=== PATIENT | female | born 2000 | race Caucasian/White ===

== ENCOUNTER 2022-04-22 15:30 | Day surgery (SDC) | payer OTHER ==
[2022-04-22 16:09] VITALS: BMI 30.7
[2022-04-22 16:32] LABS: Fetal Membranes Rupture No Membranes Rupture (No Rupture)
[2022-04-22] MEDS ORDERED: hydrALAZINE 20 MG/ML VIAL SLOW IVP PRN (16:53)
[2022-04-22] MEDS ORDERED: Lactated Ringer's 1,000 ML IV SCH (17:00)
== END 2022-04-22 18:30 | disposition home or self-care (01) ==
LOC: CSHLD/OP 15:30
PROVIDERS: ATTEND Obstetrics & Gynecology
DX: O60.03 Preterm labor without delivery, third trimester (principal); Z3A.33 33 weeks gestation of pregnancy; O99.333 Smoking (tobacco) complicating pregnancy, third trimester; F17.200 Nicotine dependence, unspecified, uncomplicated; Z79.899 Other long term (current) drug therapy; Z98.890 Other specified postprocedural states
CPT/HCPCS: 84112

== ENCOUNTER 2022-05-18 21:42 | Day surgery (SDC) | payer OTHER ==
[2022-05-18] MEDS ORDERED: hydrALAZINE 20 MG/ML VIAL SLOW IVP PRN (23:08)
[2022-05-18 23:35] LABS: Creatinine, Urine 88.88 mg/dL (47-110)
[2022-05-18 23:45] LABS: Hemoglobin 11.4 g/dL (12.0-15.5); Mean Corpuscular HGB CONC 35.3 g/dL (32.0-36.0); Mean Corpuscular Hemoglobin 30.5 pg (27.0-33.0); Mean Corpuscular Volume 86.4 fl (81.6-98.3); Mean Platelet Volume 9.9 fl (7.4-10.4); Platelet Count 349 10x3/uL (150-450); RBC Distribution Width 12.7 % (11.5-14.5); Red Blood Cell (RBC) Count 3.74 10x6/uL (3.90-5.03); White Blood Cell (WBC) Count 13.3 10x3/uL (3.5-10.5)
[2022-05-19 00:02] LABS: ALT (SGPT) 10 U/L (8-55); AST (SGOT) 11 U/L (5-34); Albumin 3.5 g/dL (3.5-5.0); Alkaline Phosphatase 128 U/L (40-110); Anion Gap 14 mmol/L (10-20); BUN (Urea Nitrogen) 7 mg/dL (7.0-18.7); Bilirubin, Total 0.2 mg/dL (0.2-1.2); Calc. Creatinine Clearance 0 mL/min (70-130); Calcium 9.8 mg/dL (7.8-10.44); Carbon Dioxide 21 mmol/L (22-29); Chloride 104 mmol/L (98-107); Estimated GFR 132; Glucose 99 mg/dL (70-105); Potassium 3.8 mmol/L (3.5-5.1); Protein, Total 6.5 g/dL (6.0-8.3); Sodium 135 mmol/L (136-145)
[2022-05-19 00:16] LABS: MDiff Complete? YES
[2022-05-19 00:18] LABS: Band 7 % (5-11); Eosinophils 3 % (0-10); Lymphocytes 31 % (21-51); Monocytes 3 % (0-10); Neutrophil 53 % (42-75); Reactive Lymphocytes 3 % (0-10)
[2022-05-19 00:19] LABS: Platelet Morphology Comment Appears Adequate
[2022-05-19 00:20] LABS: RBC Morphology Normal
[2022-05-19 03:34] VITALS: BMI 30.7
== END 2022-05-19 00:28 | disposition home or self-care (01) ==
LOC: CSHLD/OP 21:42
PROVIDERS: ATTEND Advanced Practice Midwife
DX: O13.3 Gestational [pregnancy-induced] hypertension without significant proteinuria, third trimester (principal); O99.333 Smoking (tobacco) complicating pregnancy, third trimester; F17.210 Nicotine dependence, cigarettes, uncomplicated; Z3A.36 36 weeks gestation of pregnancy
CPT/HCPCS: 36415; 80053; 82570; 84156; 85025; 99284

== ENCOUNTER 2022-05-21 22:24 | Inpatient (IN) | payer OTHER ==
[~2022-05-21 22:24] MED LIST: Butorphanol Tartrate 1 MG/ML VIAL SLOW IVP PRN; HYDROcodone/Acetaminophen 5/325 mg Tablet PO PRN; Ibuprofen 800 MG TAB PO PRN; Lidocaine 1% (PF) 30 ML VIAL SC PRN; Misoprostol 200 MCG TAB PR PRN; Ondansetron PF 4 MG/2 ML Vial IVP PRN; Promethazine HCl 25 MG/ML VIAL IM PRN; hydrALAZINE 20 MG/ML VIAL SLOW IVP PRN
[2022-05-22 05:55] VITALS: BMI 31.6
[2022-05-22] MEDS ORDERED: NS w/ Oxytocin 30 units 500 ML IV SCH ×2 (06:00)
[2022-05-22 07:36] LABS: Hemoglobin 11.8 g/dL (12.0-15.5); Mean Corpuscular HGB CONC 35.4 g/dL (32.0-36.0); Mean Corpuscular Hemoglobin 30.3 pg (27.0-33.0); Mean Corpuscular Volume 85.6 fl (81.6-98.3); Mean Platelet Volume 9.8 fl (7.4-10.4); Platelet Count 330 10x3/uL (150-450); Red Blood Cell (RBC) Count 3.89 10x6/uL (3.90-5.03); White Blood Cell (WBC) Count 10.6 10x3/uL (3.5-10.5)
[2022-05-22 07:50] LABS: ALT (SGPT) 13 U/L (8-55); AST (SGOT) 12 U/L (5-34); Albumin 3.5 g/dL (3.5-5.0); Alkaline Phosphatase 135 U/L (40-110); Anion Gap 16 mmol/L (10-20); BUN (Urea Nitrogen) 7 mg/dL (7.0-18.7); Bilirubin, Total 0.3 mg/dL (0.2-1.2); Calc. Creatinine Clearance 173 mL/min (70-130); Calcium 9.1 mg/dL (7.8-10.44); Carbon Dioxide 17 mmol/L (22-29); Chloride 105 mmol/L (98-107); Estimated GFR 131; Globulin 2.8 g/dL (2.4-3.5); Glucose 101 mg/dL (70-105); Potassium 3.9 mmol/L (3.5-5.1); Protein, Total 6.3 g/dL (6.0-8.3); Sodium 134 mmol/L (136-145)
[2022-05-22 07:57] LABS: Syphilis Antibody Nonreactive (Nonreactive); Syphilis Antibody Index 0.03 S/CO (<1.00 Non-Reactive)
[2022-05-22 07:59] LABS: HBSAg Index 0.25 S/CO (0-0.99); Hep B Surf Ag Non-Reactive S/CO (NonReactive)
[2022-05-22] MEDS ORDERED: Bupivacaine HCl 0.5%/Epinephrine 1:200,000/PF 30 ml Vial ONE (08:00)
[2022-05-22] MEDS ORDERED: Bupivacaine/Epinephrine 0.25% 30 ML VIAL ONE (08:00)
[2022-05-22 10:10] LABS: SARS-CoV-2 NAA Rapid Test Not Detected (NotDetected)
[2022-05-22] MEDS ORDERED: Moisturizing Cream (Eucerin) 113 GM JAR TOP PRN ×2 (10:37→12:50)
[2022-05-22] MEDS ORDERED: Promethazine HCl 25 MG/ML VIAL IM PRN ×2 (10:37→12:50)
[2022-05-22] MEDS ORDERED: Ondansetron PF 4 MG/2 ML Vial IVP PRN ×2 (10:37→12:50)
[2022-05-22] MEDS ORDERED: diphenhydrAMINE 50 MG/ML VIAL IVP PRN ×2 (10:37→12:50)
[2022-05-22] MEDS ORDERED: Acetaminophen 325 MG TAB PO PRN ×2 (10:37→12:50)
[2022-05-22] MEDS ORDERED: Naloxone HCl 0.4 mg/ml Vial IVP PRN ×4 (10:37→12:50)
[2022-05-22] MEDS ORDERED: ePHEDrine Sulfate 50 MG/10 ML VIAL SLOW IVP PRN ×2 (10:37→12:50)
[2022-05-22] MEDS ORDERED: Fentanyl 2 mcg/Bupivacaine 0.1% Cassette 100 ML EPIDURAL SCH ×2 (10:45→13:00)
[2022-05-22] MEDS ORDERED: Lactated Ringer's 500 ML IV PRN ×2 (10:45→12:56)
[2022-05-22] MEDS ORDERED: Communication Order-Pharmacy FS SCH ×2 (10:45→13:00)
[2022-05-22] MEDS ORDERED: Fentanyl 2 mcg/Bup 0.1% Cadd 100 ML ONE (11:54)
[2022-05-22] MEDS ORDERED: Fentanyl 100 MCG/2 ML VIAL ONE (14:03)
[2022-05-22] MEDS ORDERED: Magnesium Sulfate 20 gm/500 ml 20 GM/500 ML BAG ONE (15:58)
[2022-05-22] MEDS ORDERED: Labetalol HCl 100 MG/20 ML VIAL SLOW IVP PRN ×2 (15:58)
[2022-05-22] MEDS ORDERED: hydrALAZINE 20 MG/ML VIAL SLOW IVP PRN ×2 (15:58→19:10)
[2022-05-22] MEDS ORDERED: Calcium Gluc 4.6 MEQ/10 ML (100 MG/ML) SLOW IVP PRN (15:58)
[2022-05-22] MEDS ORDERED: Lorazepam 2 MG/ML VIAL SLOW IVP PRN (15:58)
[2022-05-22] MEDS ORDERED: hydrOXYzine 25 MG TAB PO PRN (15:59)
[2022-05-22] MEDS ORDERED: Magnesium Sulfate 20 gm/500 ml 20 GM/500 ML BAG IVPB SCH ×2 (16:00)
[2022-05-22] MEDS ORDERED: Labetalol HCl 100 MG/20 ML VIAL ONE (16:04)
[2022-05-22] MEDS ORDERED: Misoprostol 200 MCG TAB ONE (18:02)
[2022-05-22] MEDS ORDERED: Carboprost 250 MCG/ML AMP ONE (18:02)
[2022-05-22 18:24] LABS: Amphetamine Not Detected (NotDetected); Barbiturates Screen Not Detected (NotDetected); Benzodiazepine Screen Not Detected (NotDetected); Cocaine Metabolite Screen Not Detected (NotDetected); Methadone Not Detected (NotDetected); Methamphetamine Not Detected (NotDetected); Opiate Screen Not Detected (NotDetected); Oxycodone Screen Not Detected (NotDetected); Phencyclidine (PCP) Not Detected (NotDetected); THC/Cannabinoid Screen Not Detected (NotDetected); Tricyclic Screen Not Detected (NotDetected)
[2022-05-22] MEDS ORDERED: Bisacodyl 10 MG SUPP PR PRN (19:10)
[2022-05-22] MEDS ORDERED: Boostrix 0.5 ML (Tdap) VIAL (>/=7 yrs of age) IM ONE (19:10)
[2022-05-22] MEDS ORDERED: Lanolin Ointment 7 GM TUBE TOP PRN (19:10)
[2022-05-22] MEDS ORDERED: Milk Of Magnesia 30 ML UDCUP PO PRN (19:10)
[2022-05-22] MEDS ORDERED: HYDROcodone/Acetaminophen 5/325 mg Tablet PO PRN ×2 (19:10)
[2022-05-22] MEDS ORDERED: Benzocaine-Menthol 82.5 ML CAN TOP PRN (19:10)
[2022-05-22] MEDS: Lactated Ringer's 1,000 ML IV SCH (20:49)
[2022-05-23] MEDS: Ibuprofen 800 MG TAB PO SCH (16:58)
[2022-05-23] MEDS: Docusate 100 MG CAP PO SCH (21:24)
[2022-05-24] MEDS: Lactated Ringer's 1,000 ML IV SCH ×2 (08:56→09:20)
[2022-05-24] MEDS: Docusate 100 MG CAP PO SCH ×3 (08:56→09:20)
[2022-05-24] MEDS: Ferrous Sulfate 325 MG TAB PO SCH ×3 (08:57→09:19)
[2022-05-24] MEDS: Ibuprofen 800 MG TAB PO SCH (08:57)
[2022-05-24] MEDS: Prenatal Vitamin 1 TAB PO SCH ×2 (08:58→09:19)
[2022-05-24 11:22] VITALS: BP 119/91; TEMP 98
== END 2022-05-24 13:55 | disposition home or self-care (01) | DRG 807 ==
LOC: CSHLD 22:24 → UNDOADMIN 05-22 05:21 → CSHLD 05-22 05:21 → CSHPP 05-24 08:27
PROVIDERS: ADMIT Obstetrics & Gynecology; ATTEND Advanced Practice Midwife
PROC: 10E0XZZ Delivery of Products of Conception, External Approach (ICD-10-PCS; principal; 2022-05-22)
PROC: 10907ZC Drainage of Amniotic Fluid, Therapeutic from Products of Conception, Via Natural or Artificial Opening (ICD-10-PCS; 2022-05-22)
DX: O13.4 Gestational [pregnancy-induced] hypertension without significant proteinuria, complicating childbirth (principal); Z37.0 Single live birth; O66.0 Obstructed labor due to shoulder dystocia; Z3A.37 37 weeks gestation of pregnancy; Z20.822 Contact with and (suspected) exposure to COVID-19
CPT/HCPCS: 51702; 80053; 80306; 85027; 86780; 86850; 86900; 86901; 87340; J0360; J2550; J2590; J7120; U0002

== ENCOUNTER 2022-08-11 08:16 | Emergency (ER) | payer OTHER | END 2022-08-11 08:55 | disposition home or self-care (01) | LOC: CSHERS 08:16 | DX: H60.92 Unspecified otitis externa, left ear (principal); F17.210 Nicotine dependence, cigarettes, uncomplicated | CPT/HCPCS: 99282 ==

== ENCOUNTER 2023-02-10 19:37 | Emergency (ER) | payer OTHER | END 2023-02-10 21:11 | disposition left against medical advice (07) | LOC: CSHERS 19:37 | DX: Z53.21 Procedure and treatment not carried out due to patient leaving prior to being seen by health care provider (principal) ==

== ENCOUNTER 2023-03-12 11:36 | Emergency (ER) | payer OTHER ==
[2023-03-12 12:18] LABS: Bilirubin Neg (Negative); Blood, Urine Negative (Negative); Clarity Clear (Clear); Glucose, Urine (Dipstick) Normal (Negative); Ketone, Urine 5 mg/dL (Negative); Leukocyte 25 (Negative); Nitrite Negative (Negative); Protein, Urine (Dipstick) 15 mg/dl (Neg-Trace); Specific Gravity, Urine 1.015 (1.005-1.030); Urobilinogen Normal mg/dL (Less than 2)
[2023-03-12 12:31] LABS: Pregnancy Test - Urine (BHCG) Negative (Negative); Pregu Control Background? CLEAR/WHITE (CLR/WHITE); Pregu Control Bar Appear? YES (CONTROL BAR); Specific Gravity 1.015 (1.002-1.036)
[2023-03-12 12:35] LABS: Bacteria/HPF Rare-Few HPF (None Seen); CAUTI Indications for Culture Pelvic or flank pain; RBC/HPF 0-3 HPF (0-3); Squamous Epithelial 0-3 HPF (0-3); WBC/HPF 0-3 HPF (0-3)
[2023-03-12 12:36] LABS: Urine Culture Reflex No No
[2023-03-12] MEDS ORDERED: Acetaminophen 500 MG TAB ONE (13:02)
== END 2023-03-12 14:12 | disposition home or self-care (01) ==
LOC: CSHERS 11:36
DX: B34.9 Viral infection, unspecified (principal)
CPT/HCPCS: 81001; 81025; 99283

== ENCOUNTER 2023-12-19 19:28 | Emergency (ER) | payer OTHER ==
[~2023-12-19 19:28] MED LIST changes: -Butorphanol Tartrate 1 MG/ML VIAL SLOW IVP PRN; -HYDROcodone/Acetaminophen 5/325 mg Tablet PO PRN; -Ibuprofen 800 MG TAB PO PRN; +Iopamidol 300 61% 100 ML VIAL FS ONE; -Lidocaine 1% (PF) 30 ML VIAL SC PRN; -Misoprostol 200 MCG TAB PR PRN; -Ondansetron PF 4 MG/2 ML Vial IVP PRN; -Promethazine HCl 25 MG/ML VIAL IM PRN; -hydrALAZINE 20 MG/ML VIAL SLOW IVP PRN
[2023-12-19] MEDS ORDERED: Ketorolac Tromethamine 30 MG (1 mL) VIAL ONE (21:00)
[2023-12-19 21:19] LABS: #Basophils 0.04 10x3/uL (0.0-0.2); #Monocytes 0.83 10x3/uL (0.0-1.1); #Neutrophils 9.58 10x3/uL (1.5-8.4); %Basophils 0.3 % (0.0-2.0); %Eosinophils 0.7 % (0.0-6.0); %Lymphocytes 20.9 % (18.0-47.0); %Monocytes 6.2 % (0.0-10.0); %Neutrophils 71.7 % (40.0-75.0); Hematocrit 35.6 % (34.9-44.5); Hemoglobin 12.5 g/dL (12.0-15.5); Mean Corpuscular HGB CONC 35.1 g/dL (32.0-36.0); Mean Corpuscular Hemoglobin 30.2 pg (27.0-33.0); Mean Platelet Volume 9.3 fL (7.4-10.4); Platelet Count 348 10x3/uL (150-450); RBC Distribution Width 13.5 % (11.5-14.5); Red Blood Cell (RBC) Count 4.14 10x6/uL (3.90-5.03); White Blood Cell (WBC) Count 13.4 10x3/uL (3.5-10.5)
[2023-12-19 21:43] LABS: BHCG - Serum Negative (NEGATIVE); Pregs Control Background? CLEAR/WHITE (CLR/WHITE); Pregs Control Bar Appear? YES (CONTROL BAR)
[2023-12-19 21:50] LABS: ALT (SGPT) 15 U/L (8-55); AST (SGOT) 15 U/L (5-34); Albumin 4.2 g/dL (3.5-5.0); Alkaline Phosphatase 31 U/L (40-110); Anion Gap 13 mmol/L (10-20); BUN (Urea Nitrogen) 9 mg/dL (7.0-18.7); Bilirubin, Total 0.5 mg/dL (0.2-1.2); Calc. Creatinine Clearance 0 mL/min (70-130); Calcium 9.5 mg/dL (7.8-10.44); Carbon Dioxide 21 mmol/L (22-29); Chloride 109 mmol/L (98-107); Estimated GFR 122; Glucose 79 mg/dL (70-105); Lipase 15 U/L (8-78); Potassium 3.5 mmol/L (3.5-5.1); Protein, Total 7.2 g/dL (6.0-8.3); Sodium 139 mmol/L (136-145)
[2023-12-19 22:34] LABS: Bilirubin Neg (Negative); Blood, Urine 150 (Negative); Clarity Slightly Cloudy (Clear); Glucose, Urine (Dipstick) Normal (Negative); Ketone, Urine 15 mg/dL (Negative); Nitrite Negative (Negative); Protein, Urine (Dipstick) 15 mg/dl (Neg-Trace)
[2023-12-19] MEDS ORDERED: diphenhydrAMINE 50 MG/ML VIAL ONE (22:38)
[2023-12-19 22:46] LABS: Leukocyte 100 (Negative)
[2023-12-19 22:47] LABS: Bacteria/HPF 2+ HPF (None Seen); CAUTI Indications for Culture Pelvic or flank pain; Squamous Epithelial 0-3 HPF (0-3)
[2023-12-19 22:49] LABS: Urine Culture Reflex No No
[2023-12-19] MEDS ORDERED: cefTRIAXone (ROCEPHIN) 1 GM VIAL ONE (23:14)
== END 2023-12-19 23:30 | disposition home or self-care (01) ==
LOC: CSHERS 19:28
DX: N39.0 Urinary tract infection, site not specified (principal); F17.290 Nicotine dependence, other tobacco product, uncomplicated
CPT/HCPCS: 74177; 80053; 81001; 83690; 84703; 85025; 96374; 96375; J0696; J1200; J1885; Q9967

== ENCOUNTER 2024-06-02 22:10 | Emergency (ER) | payer SELFPAY ==
[2024-06-02 23:00] LABS: Pregnancy Test - Urine (BHCG) Negative (Negative); Pregu Control Background? CLEAR/WHITE (CLR/WHITE); Pregu Control Bar Appear? YES (CONTROL BAR)
== END 2024-06-02 23:10 | disposition home or self-care (01) ==
LOC: CSHERS 22:10
DX: R11.0 Nausea (principal)
CPT/HCPCS: 81025; 99284

== ENCOUNTER 2025-02-26 22:16 | Emergency (ER) | payer SELFPAY ==
[2025-02-26 23:19] LABS: Glucose, Urine (Dipstick) Normal (Negative); Leukocyte Negative (Negative); Protein, Urine (Dipstick) Negative (Neg-Trace); Specific Gravity, Urine 1.015 (1.005-1.030)
[2025-02-26 23:20] LABS: Pregnancy Test - Urine (BHCG) Negative (Negative); Pregu Control Background? CLEAR/WHITE (CLR/WHITE); Pregu Control Bar Appear? YES (CONTROL BAR)
[2025-02-26 23:31] LABS: Bacteria/HPF 1+ HPF (None Seen); CAUTI Indications for Culture Pelvic or flank pain; RBC/HPF 0-3 HPF (0-3); Urine Culture Reflex No No; WBC/HPF 0-3 HPF (0-3)
[2025-02-26] MEDS ORDERED: cefTRIAXone (ROCEPHIN) 500 MG VIAL ONE (23:43)
[2025-02-27 16:05] LABS: Chlamydia by PCR, Vaginal Swab Not Detected (NotDetected); GC by PCR, Vaginal Swab Not Detected (NotDetected)
== END 2025-02-27 00:45 | disposition home or self-care (01) ==
LOC: CSHERS 22:16
DX: N76.0 Acute vaginitis (principal); F17.210 Nicotine dependence, cigarettes, uncomplicated; F17.290 Nicotine dependence, other tobacco product, uncomplicated; Z20.2 Contact with and (suspected) exposure to infections with a predominantly sexual mode of transmission
CPT/HCPCS: 81001; 81025; 87480; 87491; 87510; 87591; 87660; 99283; J0696

== ENCOUNTER 2025-06-04 17:21 | Emergency (ER) | payer OTHER ==
[2025-06-04 18:19] LABS: #Basophils Less than 0.03 10x3/uL (0.0-0.2); #Eosinophils 0.03 10x3/uL (0.0-0.5); #Monocytes 0.75 10x3/uL (0.0-1.1); #Neutrophils 5.36 10x3/uL (1.5-8.4); %Basophils 0.2 % (0.0-2.0); %Eosinophils 0.5 % (0.0-6.0); %Lymphocytes 4.9 % (18.0-47.0); %Monocytes 11.6 % (0.0-10.0); %Neutrophils 82.5 % (40.0-75.0); Hematocrit 33.3 % (34.9-44.5); Hemoglobin 11.7 g/dL (12.0-15.5); Mean Corpuscular Hemoglobin 30.2 pg (27.0-33.0); Mean Corpuscular Volume 86.0 fL (81.6-98.3); Platelet Count 219 10x3/uL (150-450); Red Blood Cell (RBC) Count 3.87 10x6/uL (3.90-5.03); White Blood Cell (WBC) Count 6.49 10x3/uL (3.5-10.5)
[2025-06-04 18:24] LABS: BHCG - Serum Negative (NEGATIVE); Pregs Control Background? CLEAR/WHITE (CLR/WHITE); Pregs Control Bar Appear? YES (CONTROL BAR)
[2025-06-04 18:30] LABS: ALT (SGPT) 15 U/L (Less than 34); AST (SGOT) 20 U/L (11-34); Albumin 4.1 g/dL (3.1-4.5); Alkaline Phosphatase 25 U/L (40-110); Anion Gap 14 mmol/L (10-20); BUN (Urea Nitrogen) 8 mg/dL (7.0-18.7); Bilirubin, Total 0.1 mg/dL (0.3-1.2); Calc. Creatinine Clearance 0 mL/min (70-130); Calcium 9.0 mg/dL (7.8-10.44); Carbon Dioxide 19 mmol/L (22-29); Chloride 105 mmol/L (98-107); Globulin 2.8 g/dL (2.4-3.5); Glucose 74 mg/dL (70-105); Lipase 9 U/L (8-78); Potassium 3.6 mmol/L (3.5-5.1); Sodium 134 mmol/L (136-145)
[2025-06-04 19:24] LABS: Glucose, Urine (Dipstick) Normal (Negative); Leukocyte Negative (Negative); Protein, Urine (Dipstick) Negative (Neg-Trace); Specific Gravity, Urine 1.020 (1.005-1.030)
[2025-06-04 19:57] LABS: CAUTI Indications for Culture Pelvic or flank pain; RBC/HPF 0-3 HPF (0-3); WBC/HPF None Seen HPF (0-3)
[2025-06-04 19:58] LABS: Bacteria/HPF Rare-Few HPF (None Seen); Urine Culture Reflex No No
== END 2025-06-04 19:15 | disposition home or self-care (01) ==
LOC: CSHERS 17:21
DX: J10.1 Influenza due to other identified influenza virus with other respiratory manifestations (principal); F17.290 Nicotine dependence, other tobacco product, uncomplicated
CPT/HCPCS: 36415; 76705; 80053; 81001; 83605; 83690; 84703; 85025; 87428; 96374